=== PATIENT | female | born 1955 | race Asian ===

== ENCOUNTER 2020-08-27 15:46 | Inpatient (IN) | payer MEDICAID ==
[~2020-08-27] VITALS: Ht 152.4 cm; Wt 60.8 kg
--- NOTE | 2020-08-27 17:15 | REPVR ---
PROCEDURE INFORMATION: Exam: CT Head Without Contrast Exam date and time: 08/27/2020 5:02 PM Age: 65 years old Clinical indication: Other: Numbness in hand; Additional info: CVA - nursing interventions must not delay CT TECHNIQUE: Imaging protocol: Computed tomography of the head without contrast. Radiation optimization: All CT scans at this facility use at least one of these dose optimization techniques: automated exposure control; mA and/or kV adjustment per patient size (includes targeted exams where dose is matched to clinical indication); or iterative reconstruction. COMPARISON: No relevant prior studies available. FINDINGS: Brain: Normal. No hemorrhage. Unremarkable white matter. No mass effect. Cerebral ventricles: No ventriculomegaly. Bones/joints: No acute abnormality identified. No acute fracture. Paranasal sinuses: Visualized sinuses are unremarkable. No fluid levels. Mastoid air cells: Visualized mastoid air cells are well aerated. Orbital cavity: Left prior cataract surgery. Right prior cataract surgery with lens replacement. Vasculature: Atherosclerotic calcifications are present involving the carotid artery siphons bilaterally. Soft tissues: Unremarkable. IMPRESSION: No acute intracranial abnormality identified. Electronically signed by: Sampson Arndt On 08/27/2020 17:15:10 PM
--- NOTE | 2020-08-27 17:28 | REP ---
INDICATION: CVA. COMPARISON: None. TECHNIQUE: Portable FINDINGS: The technique utilized in obtaining the radiograph has magnified the cardiac silhouette and accentuated the interstitial markings. The superior mediastinal structures are midline. The cardiac silhouette is magnified by technique but otherwise unremarkable in size, shape, and position. The diaphragmatic surfaces of the lungs are regular, and the costophrenic angles are clear. The pulmonary morin are clear. The imaged osseous structures are intact. IMPRESSION: There is no acute cardiopulmonary disease. <Electronically signed by Timo Sullivan > 08/27/20 [id number]
[2020-08-27] MEDS ORDERED: NS 1,000 ML IV ONE (18:00)
[2020-08-27] MEDS ORDERED: METOCLOPRAMIDE INJ 10MG/2ML VIAL (J2765 PER 1) IV ONE (18:00)
[2020-08-27] MEDS ORDERED: ACETAMINOPHEN *IV* 1,000 MG in IV 1 EA IV ONE (18:00)
[2020-08-27 18:15] LABS: BASO % 0.6 % (0.0-1.0); EOS % 0.9 % (0.0-3.0); HEMATOCRIT 33.7 % (36.0-47.0); HEMOGLOBIN 11.2 g/dl (12.0-15.5); LYMPH # 1.2 10^3/uL (1.5-5.0); LYMPH % 38.8 % (24.0-44.0); MEAN CORPUSCULAR HEMOGLOBIN 33.3 pg (27.0-33.0); MEAN CORPUSCULAR HGB CONC 33.2 g/dl (32.0-36.5); MEAN CORPUSCULAR VOLUME 100.3 fl (80.0-96.0); MONO # 0.3 10^3/uL (0.0-0.8); MONO % 8.5 % (0.0-5.0); NEUTROPHILS # 1.6 10^3/uL (1.5-8.5); NEUTROPHILS % 51.2 % (36.0-66.0); PLATELET COUNT, AUTOMATED 176 10^3/uL (150-450); RED BLOOD COUNT 3.36 10^6/uL (4.00-5.40); WHITE BLOOD COUNT 3.2 10^3/uL (4.0-10.0)
[2020-08-27 18:34] LABS: INR 0.91; PROTHROMBIN TIME 12.4 SECONDS (12.5-14.3)
[2020-08-27 18:54] LABS: CK-MB VALUE MASS < 1.0 NG/ML (<3.6); CPK CREATINE PHOSPHOKINASE 217 U/L (26-192); MB/CK RELATIVE INDEX 0.46 (< OR =4); TROPONIN I < 0.02 NG/ML (< 0.10)
[2020-08-27] MEDS ORDERED: ISOVUE-370 76% 100ML VIAL As Ordered ONE (19:59)
[2020-08-27] MEDS ORDERED: ATORVASTATIN 20 MG TAB PO SCH (21:00)
--- NOTE | 2020-08-27 21:40 | HPEPDOC ---
[facility] Medical History & Physical Date of Admission Aug 27, 2020 Date of Service: Aug 27, 2020 History and Physical CHIEF COMPLAINT: Left hand numbness and weakness. HISTORY OF PRESENT ILLNESS: This is a 65-year-old female with a past medical history of hypertension who presents to the hospital with her daughter due to 1 day history of right-sided headache and left hand numbness and weakness. From my understanding the symptoms occurred suddenly patient noticed left hand numbness and weakness associated with a right-sided headache this morning. Patients daughter wanted her to come to the hospital this evening at which time her symptoms had mostly resolved currently she only has a mild headache. Patient denies any left-hand weakness or numbness at this time and denies any new symptoms during this time. She endorses having history of hypertension for which she takes hydrochlorothiazide 25 mg daily. Patient just recently moved to [place] to live with her daughter. Patient endorses a second medication that she takes which they describe as a blood thinner but she is unsure what it is called she picks up the medications from a [facility] [facility] and it is unclear whether its a prescription medication or a homeopathic medicine. When asked for the reason she takes a blood thinner patient and daughter endorsed that she had a CT scan done which showed Brain blockages, they are unable to recollect when or where this CT scan was done and for what indication. At this time on ROS patient denies CP, SOB, n/v/f ever/chills. Endorses mild 2/10 right sided headache. History was obtained from daughter, emergency department staff, and circus performer via ipad. Unfortunately it appears that the patient speaks a unique dialect of mandarin which are circus performer does not understand therefore questions were related to circus performer relayed to questions in mandarin to the daughter who then translated to her mother in [facility] dialect. Unfortunately these multiple steps involved resulting in a possibly unreliable history. The circus performer ID used is [id number]. Respiratory viral panel is pending PAST MEDICAL/SURGICAL HISTORY: HTN on HCTZ Unknown possible brain vessel disease Brain blockages Per HPI Denies surgeries SOCIAL HISTORY: Denies alcohol use Denies tobacco use Denies illicit drug use FAMILY HISTORY: Reviewed and none contributory to this admission ALLERGIES: Please see below. REVIEW OF SYSTEMS: 10 point review of systems complete all negative otherwise stated in HPI HOME MEDICATIONS: Please see below. PHYSICAL EXAMINATION: Constitutional: Awake and alert, in no apparent distress ENT: Sclera are clear. Respiratory: Lungs CTA bilaterally. No respiratory distress. Cardiovascular: RRR S1 and S2 are normal, no murmur Gastrointestinal: Abdomen is soft, non-distended, non-tender, BS present. Musculoskeletal: No lower extremity edema. Mental status: The patient is awake, alert, oriented to name, location, and date. Cranial nerves: Pupils are equal, round, and reactive to light. Extraocular muscles intact. Visual morin full bilaterally. Smile is symmetrical. Tongue is midline. Intact sensation on both sides of face. Motor: At least 4+/5 in both upper and lower extremities without any drifting. Sensory: Intact to sensation bilaterally. Reflexes: Symmetrical, non-hyperreflexic. Not pathological. Coordination: [id number] grossly intact. LABORATORY DATA: See below. IMAGING: See chart MICROBIOLOGY: Please see below. ASSESSMENT/PLAN 65F hx HTN here with suspected TIA, admitted for stroke workup. # Stroke workup due to suspected TIA: CT head shows no acute intracranial abnormality. Dr Dickinson consulted from the ED who recommended a CT angio head/neck as well as MRI Ordered MRI/MRA brain, duplex carotid, Echo. Passed bedside swallow - regular diet. PT/OT. Admit on tele. Fall & seizure precautions. ASA and stain. # HTN: continue HCTZ. Monitor and titrate. # DVT prophylaxis: Lovenox A Youse[facility] Hospitalist Vital Signs Vital Signs Date Time Temp Pulse Resp B/P (MAP) Pulse Ox O2 Delivery O2 Flow Rate FiO2 08/27/20 20:47 79 18 141/67 (91) 97 Room Air 08/27/20 19:21 97.6 Laboratory Data Labs 24H Laboratory Tests 2 08/27/20 18:01: Immature Granulocyte % (Auto) 0.0, Neutrophils (%) (Auto) 51.2, Lymphocytes (%) (Auto) 38.8, Monocytes (%) (Auto) 8.5H, Eosinophils (%) (Auto) 0.9, Basophils (%) (Auto) 0.6, Neutrophils # (Auto) 1.6, Lymphocytes # (Auto) 1.2L, Monocytes # (Auto) 0.3, Eosinophils # (Auto) 0.0, Basophils # (Auto) 0.0, Nucleated Red Blood Cells % (auto) 0.0, Prothrombin Time 12.4, Prothromb Time International Ratio 0.91, Activated Partial Thromboplast Time 34.0, Total Creatine Kinase 217H, Creatine Kinase MB < 1.0, Creatine Kinase MB Relative Index 0.46, Troponin I < 0.02 08/27/20 18:07: POC Glucose (Misc Panel) 181H, POC Sodium (Misc Panel) 140, POC Potassium (Misc Panel) 4.7, POC Chloride (Misc Panel) 101, POC Total CO2 (Misc Panel) 35.0H, POC Blood Urea Nitrogen (Misc Panel 24, POC Ionized Calcium (Misc Panel) 4.4L, POC Creatinine (Misc Panel) 0.7, POC Hematocrit (Misc Panel) 36.0L 08/27/20 18:11: Bedside Glucose (Misc Panel) 167H 08/27/20 18:16: POC Prothrombin Time (Misc) 13.7, POC INR (Misc) 1.2 CBC/BMP Laboratory Tests 08/27/20 18:01 Microbiology Microbiology 08/27/20 Respiratory Virus Panel (PCR) ([facility]), Received Pending Home Medications Scheduled Amlodipine Besylate (Amlodipine Besylate) 5 Mg Tablet, 5 MG PO BID Aspirin (Children's Aspirin) 81 Mg Tab.chew, 81 MG PO DAILY Atorvastatin Calcium (Atorvastatin Calcium) 20 Mg Tablet, 20 MG PO QHS Allergies Coded Allergies: No Known Allergies (Unverified , 08/27/20) A-FIB/CHADSVASC A-FIB History Current/History of A-Fib/PAF?: No MARILU DUFF MD Aug 27, 2020 21:40
--- NOTE | 2020-08-28 08:31 | ECGEPIP ---
[facility] - ED Test Date: 2020-08-27 Pat Name: VJ INGRAM Department: Room: - Gender: Female Cso: : 1955 Requested By: HUY Hughes PA-C Order Number: [id number] Reading MD: Tim Cruz Measurements Intervals [place] Rate: 79 P: 6 CT: 149 QRS: -13 QRSD: 89 T: 17 QT: 362 QTc: 417 Interpretive Statements SINUS RHYTHM NONSPECIFIC ST & T-WAVE ABNORMALITY NO PRIORS FOR COMPARISON Electronically Signed on 08-28-2020 8:30:49 EST by Tim Cruz
[2020-08-28] MEDS ORDERED: ASPIRIN 81 MG CHEW TABLET PO SCH (09:00)
--- NOTE | 2020-08-28 09:02 | REP ---
INDICATION: hx "blocked vessels", unknown details, RUSS, L hand numb. COMPARISON: None. TECHNIQUE: CT angiogram of the head performed following the intravenous administration of 100 cc of Isovue 370. Sagittal, coronal and MIP reconstruction images are performed. FINDINGS: Intracranial carotid vessels are patent with no significant stenosis. The anterior, middle and posterior cerebral arteries are patent without significant stenosis. Vertebrobasilar system is patent with no stenosis. I do not see an a 1 segment of left anterior communicating artery. No aneurysm or AVM is seen. IMPRESSION: No evidence of significant arterial stenosis and no evidence of arterial occlusion of the intracranial vasculature as discussed in detail above. A preliminary report was provided by [facility] at the time of the exam. <Electronically signed by Jozef Diamond > 08/28/20 2185
--- NOTE | 2020-08-28 09:06 | REP ---
INDICATION: history of blocked vessels COMPARISON: None TECHNIQUE: CT angiogram of the neck was performed following the intravenous administration of 100 cc of Isovue 370. Sagittal, coronal and 3D MIP reconstruction images are performed. FINDINGS: There is mild atherosclerotic calcification of the aortic arch. Brachiocephalic artery is widely patent. Both common carotid arteries and internal carotid arteries are widely patent. No stenosis or occlusion is seen. Subclavian arteries are widely patent. There is no evidence of arterial dissection. Incidental note is made of a thyroid nodule posteriorly on the right approximately 9 mm in diameter with a partially calcified rim. The visualized osseous structures appear unremarkable. The visualized upper lung morin are clear. IMPRESSION: No carotid stenosis or occlusion. A preliminary report was provided by [facility] at the time of the exam. <Electronically signed by Jozef Diamond > 08/28/20 0902
--- NOTE | 2020-08-28 09:08 | REP ---
INDICATION: Stroke workup COMPARISON: None. TECHNIQUE: Real-time ultrasound evaluation and duplex Doppler interrogation of the extracranial carotid vasculature is performed. FINDINGS: There is mild plaquing and narrowing in both carotid bulbs extending into the internal and external carotid arteries. Luminal narrowing is less than 50%. There is no evidence of hemodynamically significant stenosis of either internal carotid artery. Normal flow velocities are seen. The vertebral arteries demonstrate normal direction of flow. RIGHT LEFT Peak systolic velocity ICA 63.1 cm/s 113 cm/s End diastolic velocity ICA 24.7 cm/s 40.1 cm/s Peak systolic velocity CCA 77.2 cm/s 60.3cm/s Peak systolic velocity ECA 60 point cm/s 67.2 cm/s ICA/CCA ratio 0.82 1.87 IMPRESSION: Bilateral luminal narrowing of the internal carotid arteries less than 50%. No evidence of hemodynamically significant stenosis. A preliminary report was provided by [facility] at the time of the exam. <Electronically signed by Jozef Diamond > 08/28/20 0904
[2020-08-28] MEDS: amLODIPine 5 MG TAB PO SCH ×2 (09:31→18:54)
--- NOTE | 2020-08-28 15:03 | REP ---
INDICATION: MRV pls, R sided RUSS, L hand numbness. COMPARISON: None. TECHNIQUE: MR venogram performed following intravenous administration of 12 mL ProHance. 3D and MIP reconstructed images are performed. FINDINGS: Superior sagittal, straight, transverse and sigmoid sinuses are patent. Cerebral veins appear patent. Internal jugular veins appear patent. IMPRESSION: No evidence of venous thrombus. Preliminary report provided by [facility] at the time of the exam. <Electronically signed by Jozef Diamond > 08/28/20 [id number]
--- NOTE | 2020-08-28 17:51 | REP ---
INDICATION: stroke symptoms, L hand numb, R sided RUSS. COMPARISON: CT 08/27/2020. TECHNIQUE: Multiple sequences obtained in the axial and sagittal planes. FINDINGS: Ventricles are normal in size and position. There is no midline shift or mass effect. There is no abnormal signal in the cerebellum or brainstem. There is no abnormal signal in the brain. There is no evidence of acute infarct. No extra-axial fluid collection is seen. The 7th and 8th cranial nerve complexes are unremarkable. There is an empty sella. There is no abnormal signal in the region of the mastoid air cells or paranasal sinuses. The globes appear intact. IMPRESSION: No acute intracranial abnormality. <Electronically signed by Jozef Diamond > 08/28/20 [id number]
[2020-08-28] MEDS ORDERED: ATOR1TAB21 PO (18:18)
[2020-08-28] MEDS ORDERED: AMLO1TAB24 PO (18:18)
[2020-08-28] MEDS ORDERED: ASPI81CH8 PO (18:18)
[2020-08-28 18:52] VITALS: BP 168/99
[2020-08-28 18:54] VITALS: BP 168/99
--- NOTE | 2020-09-07 16:17 | DS.PDOC ---
Discharge Summary General Date of Admission Aug 27, 2020 at 21:52 Date of Discharge 08/28/20 Discharge Summary PROCEDURES PERFORMED DURING STAY: [None]. DISCHARGE DIAGNOSES: TIA vs Complicated migraine. Hypertension Macrocytic anemia Leucopenia. COMPLICATIONS/CHIEF COMPLAINT: Numbness Of Left Hand, Right Sided Headache. HOSPITAL COURSE: 65F hx HTN presented to ED with right sided headache and left hand numbness. She was admitted for stroke workup. Stroke work up with MRI and MRA brain was negative, Telemetry did not show any arrhythmias. Carotid duplex did not show any significant obstruction. MRV brain was negative for any venous sinus thrombosis. It was felt that she may have had a TIA. She was started on ASA and statin. This could also be a presentation of complicated migraine as hear hand numbness disappeared after her headache improved. She was started on Amlodipine for hypertension. She was also noted to have leucopenia and macrocytic anemia. This needs to be followed up with PMD. She was set up with a PMD. She will need referral to Neurology from PMD for follow up. DISCHARGE MEDICATIONS: Please see below. ALLERGIES: Please see below. PHYSICAL EXAMINATION ON DISCHARGE: VITAL SIGNS: Please see below. GENERAL: Awake and alert, in no apparent distress ENT: Sclera are clear. Respiratory: Lungs CTA bilaterally. No respiratory distress. Cardiovascular: RRR S1 and S2 are normal, no murmur Gastrointestinal: Abdomen is soft, non-distended, non-tender, BS present. Mental status: The patient is awake, alert, oriented to name, location, and date. Cranial nerves: Pupils are equal, round, and reactive to light. Extraocular muscles intact. Visual morin full bilaterally. Smile is symmetrical. Tongue is midline. Intact sensation on both sides of face. Motor: At least 4+/5 in both upper and lower extremities without any drifting. Sensory: Intact to sensation bilaterally. Reflexes: Symmetrical, non-hyperreflexic. Not pathological. Coordination: Tyjttb-so-yvcn grossly intact. LABORATORY DATA: Please see below. IMAGING: MRI brain: Ventricles are normal in size and position. There is no midline shift or mass effect. There is no abnormal signal in the cerebellum or brainstem. There is no abnormal signal in the brain. There is no evidence of acute infarct. No extra-axial fluid collection is seen. The 7th and 8th cranial nerve complexes are unremarkable. There is an empty sella. There is no abnormal signal in the region of the mastoid air cells or paranasal sinuses. The globes appear intact. IMPRESSION: No acute intracranial abnormality. MRV Brain: MR venogram performed following intravenous administration of 12 mL ProHance. 3D and MIP reconstructed images are performed. FINDINGS: Superior sagittal, straight, transverse and sigmoid sinuses are patent. Cerebral veins appear patent. Internal jugular veins appear patent. IMPRESSION: No evidence of venous thrombus. CTA brain; Intracranial carotid vessels are patent with no significant stenosis. The anterior, middle and posterior cerebral arteries are patent without significant stenosis. Vertebrobasilar system is patent with no stenosis. I do not see an a 1 segment of left anterior communicating artery. No aneurysm or AVM is seen. IMPRESSION: No evidence of significant arterial stenosis and no evidence of arterial occlusion of the intracranial vasculature as discussed in detail above. CTA Neck: There is mild atherosclerotic calcification of the aortic arch. Brachiocephalic artery is widely patent. Both common carotid arteries and internal carotid arteries are widely patent. No stenosis or occlusion is seen. Subclavian arteries are widely patent. There is no evidence of arterial dissection. Incidental note is made of a thyroid nodule posteriorly on the right approximately 9 mm in diameter with a partially calcified rim. The visualized osseous structures appear unremarkable. The visualized upper lung morin are clear. IMPRESSION: No carotid stenosis or occlusion. Carotid US: Bilateral luminal narrowing of the internal carotid arteries less than 50%. No evidence of hemodynamically significant stenosis. ACTIVITY: [As tolerated]. DIET: 2 gm sodium diet DISPOSITION: 01 Home, Self-Care. DISCHARGE INSTRUCTIONS: PMD in 1 week DISCHARGE CONDITION: [Stable]. TIME SPENT ON DISCHARGE: 35 minutes. Vital Signs/I&Os Vital Signs Label Value Date Time Pulse 59 08/28/20 0830 Blood Pressure Assessment 161/90 (113) 08/28/20 0830 Bedside Pulse Oximetry 95 % 08/28/20 0830 Respiratory Rate 16 bpm 08/28/20 0715 Patient Temperature 98.7 degrees F 08/28/20 0515 Laboratory Data Labs 24H Item Value Date Time White Blood Count 3.2 10^3/uL L 08/27/20 1801 Hemoglobin 11.2 g/dl L 08/27/20 1801 Mean Corpuscular Volume 100.3 fl H 08/27/20 1801 Red Cell Distribution Width 11.9 % 08/27/20 1801 Platelet Count 176 10^3/uL 08/27/20 180 Bedside Glucose (Misc Panel) 167 MG/DL H 08/27/20 181 POC Sodium (Misc Panel) 140 MEQ/L 08/27/20 180 POC Potassium (Misc Panel) 4.7 MEQ/L 08/27/20 180 POC Chloride (Misc Panel) 101 MEQ/L 08/27/20 180 POC Total CO2 (Misc Panel) 35.0 MM/L H 08/27/20 180 POC Blood Urea Nitrogen (Misc Panel 24 MG/DL 08/27/20 180 POC Ionized Calcium (Misc Panel) 4.4 MG/DL L 08/27/20 180 POC Creatinine (Misc Panel) 0.7 MG/DL 08/27/20 180 Total Creatine Kinase 217 U/L H 08/27/201800 Creatine Kinase MB < 1.0 NG/ML 08/27/201800 Creatine Kinase MB Relative Index 0.46 08/27/201800 Troponin I < 0.02 NG/ML 08/27/20 180 Discharge Medications Scheduled Amlodipine Besylate (Amlodipine Besylate) 5 Mg Tablet, 5 MG PO BID Aspirin (Children's Aspirin) 81 Mg Tab.chew, 81 MG PO DAILY Atorvastatin Calcium (Atorvastatin Calcium) 20 Mg Tablet, 20 MG PO QHS Allergies Coded Allergies: No Known Allergies (Unverified , 08/27/20) RICK VASQUEZ MD Sep 07, 2020 16:17
== END 2020-08-28 18:58 | disposition home or self-care (01) | DRG 47 ==
LOC: M ED 15:46 → M ED INP 21:52
PROVIDERS: ADMIT Family Medicine; ATTEND Internal Medicine Nephrology
DX: G45.9 Transient cerebral ischemic attack, unspecified (principal); I10 Essential (primary) hypertension; G43.109 Migraine with aura, not intractable, without status migrainosus; D53.9 Nutritional anemia, unspecified